=== PATIENT | female | born 1950 | race Native Hawaiian/Other Pacific Islander ===

== ENCOUNTER 2018-09-20 14:38 | Outpatient (CLI) | payer OTHER | END 2018-09-20 21:15 | disposition home or self-care (01) | LOC: US 14:38 | DX: M79.605 Pain in left leg (principal); M79.89 Other specified soft tissue disorders ==

== ENCOUNTER 2018-09-22 09:18 | Outpatient (CLI) | payer OTHER | END 2018-09-22 19:24 | disposition home or self-care (01) | LOC: RAD 09:18 | DX: M79.605 Pain in left leg (principal) ==

== ENCOUNTER 2018-10-05 07:37 | Outpatient (CLI) | payer OTHER ==
[2018-10-05 08:01] LABS: PLATELET COUNT 426 K/uL (152-353)
[2018-10-05 08:26] LABS: POTASSIUM 4.5 mmol/L (3.6-5.2)
== END 2018-10-05 19:11 | disposition home or self-care (01) ==
LOC: LABW 07:37
PROVIDERS: Physician Assistant
DX: M79.605 Pain in left leg (principal); M79.89 Other specified soft tissue disorders; E78.00 Pure hypercholesterolemia, unspecified; Z68.31 Body mass index [BMI] 31.0-31.9, adult; Z79.899 Other long term (current) drug therapy; E55.9 Vitamin D deficiency, unspecified
CPT/HCPCS: 80053; 80061; 82306; 83036; 84439; 84443; 85027; 85651

== ENCOUNTER 2019-12-21 11:56 | Outpatient (CLI) | payer OTHER | END 2019-12-21 22:36 | disposition home or self-care (01) | LOC: CT 11:56 | DX: R10.84 Generalized abdominal pain (principal) | CPT/HCPCS: 82565; 84520; Q9963 ==

== ENCOUNTER 2019-12-25 12:47 | Outpatient (CLI) | payer OTHER | END 2019-12-25 19:39 | disposition home or self-care (01) | LOC: MRI 12:47 | DX: K86.2 Cyst of pancreas (principal); Z12.31 Encounter for screening mammogram for malignant neoplasm of breast | CPT/HCPCS: A9576 ==

== ENCOUNTER 2020-03-14 07:28 | Outpatient (CLI) | payer OTHER ==
[2020-03-14 06:42] LABS: POTASSIUM 4.1 mmol/L (3.6-5.2)
[2020-03-14 06:57] LABS: PLATELET COUNT 438 K/uL (152-353)
== END 2020-03-14 22:50 | disposition home or self-care (01) ==
LOC: LAB 07:28
PROVIDERS: Nurse Practitioner Family
DX: E55.9 Vitamin D deficiency, unspecified (principal); R53.83 Other fatigue; E53.8 Deficiency of other specified B group vitamins; E66.9 Obesity, unspecified; E78.2 Mixed hyperlipidemia
CPT/HCPCS: 36415; 80053; 80061; 81000; 82306; 82607; 84443; 85027

== ENCOUNTER 2021-08-18 14:38 | Emergency (ER) | payer OTHER ==
[~2021-08-18] VITALS: Ht 162.6 cm; Wt 81.6 kg
[2021-08-18 14:45] VITALS: TEMP 98
[2021-08-18 15:09] LABS: PLATELET COUNT 370 K/uL (152-353)
[2021-08-18 15:22] LABS: POTASSIUM 3.8 mmol/L (3.6-5.2)
[2021-08-18 15:24] LABS: PARTIAL THROMBOPLASTIN TIME 28.9 SECONDS (24.5-33.6)
[2021-08-18] MEDS ORDERED: ASPIRIN 81 LOW81 MG PO (15:52)
[2021-08-18] MEDS ORDERED: VITAMIN D3 COMPLETE PO (15:54)
[2021-08-18] MEDS ORDERED: BLACK COHOSH PO (15:56)
[2021-08-18 18:10] VITALS: BP 128/64
== END 2021-08-18 18:11 | disposition short-term general hospital (02) ==
LOC: ED 14:38
PROVIDERS: Emergency Medicine
DX: R00.1 Bradycardia, unspecified (principal); I44.1 Atrioventricular block, second degree; Z11.52 Encounter for screening for COVID-19; Z79.82 Long term (current) use of aspirin; Z51.81 Encounter for therapeutic drug level monitoring
CPT/HCPCS: 36415; 80053; 83880; 84484; 85027; 85379; 85610; 85730; 87635; 93005; 96360; 96361; 99284; U0003

== ENCOUNTER 2021-08-29 11:12 | Emergency (ER) | payer OTHER ==
[~2021-08-29] VITALS: Ht 162.6 cm; Wt 82.6 kg
[~2021-08-29 11:12] MED LIST: ASPIRIN 81 LOW81 MG PO; BLACK COHOSH PO; VITAMIN D3 COMPLETE PO
[2021-08-29 11:20] VITALS: TEMP 98.8
[2021-08-29 12:17] LABS: PLATELET COUNT 392 K/uL (152-353)
[2021-08-29 12:24] LABS: POTASSIUM 3.9 mmol/L (3.6-5.2)
[2021-08-29 13:00] VITALS: BP 141/79
== END 2021-08-29 13:30 | disposition home or self-care (01) ==
LOC: ED 11:12
PROVIDERS: Hospitalist
DX: R42 Dizziness and giddiness (principal)
CPT/HCPCS: 36415; 80053; 80320; 82550; 83880; 84484; 85027; 93005; 96360; 99284

== ENCOUNTER 2021-09-23 16:14 | Emergency (ER) | payer OTHER ==
[~2021-09-23] VITALS: Ht 162.6 cm; Wt 82.6 kg
[2021-09-23 16:24] VITALS: TEMP 97
[2021-09-23 16:53] LABS: PLATELET COUNT 399 K/uL (152-353)
[2021-09-23 16:59] LABS: POTASSIUM 3.8 mmol/L (3.6-5.2)
[2021-09-23 17:10] LABS: PARTIAL THROMBOPLASTIN TIME 28.8 SECONDS (24.5-33.6)
[2021-09-23 17:58] VITALS: BP 121/41
== END 2021-09-23 18:25 | disposition short-term general hospital (02) ==
LOC: ED 16:14
PROVIDERS: Emergency Medicine
DX: T82.118A Breakdown (mechanical) of other cardiac electronic device, initial encounter (principal); I44.2 Atrioventricular block, complete; R06.02 Shortness of breath; Y83.8 Other surgical procedures as the cause of abnormal reaction of the patient, or of later complication, without mention of misadventure at the time of the procedure; Y92.89 Other specified places as the place of occurrence of the external cause; Z11.52 Encounter for screening for COVID-19
CPT/HCPCS: 36415; 80053; 82550; 84484; 85027; 85610; 85730; 87635; 93005; 99284; U0003

== ENCOUNTER 2021-10-01 09:08 | Outpatient (CLI) | payer OTHER ==
[2021-10-01 09:24] LABS: PLATELET COUNT 387 K/uL (152-353)
[2021-10-01 09:44] LABS: POTASSIUM 4.2 mmol/L (3.6-5.2)
== END 2021-10-01 19:35 | disposition home or self-care (01) ==
LOC: LAB 09:08
PROVIDERS: ATTEND Nurse Practitioner Family
DX: R00.1 Bradycardia, unspecified (principal); E78.2 Mixed hyperlipidemia; R53.83 Other fatigue; E55.9 Vitamin D deficiency, unspecified
CPT/HCPCS: 36415; 80053; 80061; 82306; 82607; 84443; 85027

== ENCOUNTER 2022-05-28 07:19 | Outpatient (CLI) | payer OTHER | END 2022-05-28 19:21 | disposition home or self-care (01) | LOC: LAB 07:19 | PROVIDERS: ATTEND Internal Medicine Endocrinology, Diabetes & Metabolism | DX: E78.49 Other hyperlipidemia (principal); Z13.1 Encounter for screening for diabetes mellitus; Z79.899 Other long term (current) drug therapy | CPT/HCPCS: 36415; 80061; 83036 ==